=== PATIENT | female | born 1960 | race Caucasian/White ===

== ENCOUNTER 2016-12-27 19:22 | Emergency (ER) | payer BC ==
[2016-12-27] MEDS ORDERED: Aspirin Low Dose CHEW TAB* 81 MG PO ONE (23:27)
[2016-12-27] MEDS ORDERED: NS 0.9% 1000 ML* 1,000 ML IV ONE (23:27)
[2016-12-28 00:29] LABS: Albumin 4.2 g/dL (3.2-5.2); Calcium 9.6 mg/dL (8.6-10.3); EGFR African American 87.5 (>60); Globulin 2.6 g/dL (2-4); Magnesium 2.3 mg/dL (1.9-2.7); Potassium 3.5 mmol/L (3.5-5.0); Total Bilirubin 0.3 mg/dL (0.2-1.0); Total Protein 6.8 g/dL (6.4-8.9)
[2016-12-28 00:41] LABS: Hematocrit 39 % (35-47); Hemoglobin 12.8 g/dl (12.0-16.0); Mean Corpuscular HGB Conc 33 g/dl (31-36); Mean Corpuscular Hemoglobin 30 pg (27-31); Mean Corpuscular Volume 91 fL (80-97); Mean Platelet Volume 9 um3 (7.4-10.4); Red Blood Count 4.29 10^6/ul (4.0-5.4); Red Cell Distribution Width 13 % (10.5-15); White Blood Count 6.5 10^3/ul (3.5-10.8)
[2016-12-28 00:42] LABS: Troponin I 0.01 ng/mL (<0.04)
[2016-12-28 00:43] LABS: TSH (Thyroid Stimulating Horm) 4.26 mcIU/mL (0.34-5.60)
[2016-12-28 00:45] LABS: Urine Bacteria Absent (Absent); Urine Bilirubin Negative (Negative); Urine Glucose Negative (Negative); Urine Nitrite Negative (Negative)
--- NOTE | 2016-12-28 00:53 | ED ---
Boy Cruz Benjamin, scribed for Cinda Hills MD on 12/27/16 at 2345 . Palpitations / Dysrhythmia - HPI Summary HPI Summary: 56yo female reports brief episode of palpitation and fatigue upon exertion on and states not feeling right since 12/22/16. Pt had an episode of pounding palpitations, a"little twinge in mid sternal chest, and mildly out of breath on 12/22/16 shortly after walking the [place]. Pt is asymptomatic now but states "not feeling right" and came for evaluation. Pt reports taking adrenalenum homeopathic allergy meds last week and that it mad her feel like she feels after taking sudafed, and wonders if it stressed her heart. Denies CP. Pt has hx of palpitations, s/p normal stress test 1.5 years ago, has a vendette in [place]. FHx of afib in her father. 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 - History of Current Complaint Chief Complaint: EDDysrhythmPalp Hx Obtained From: Patient Onset/Duration: Sudden Onset, Lasting Days, Still Present Timing: Intermittent Episodes Lasting: Severity Initially: Mild Severity Currently: None Character: Pounding Aggravating: Exertion Alleviating: Nothing Associated Signs & Symptoms: Negative - Allergy/Home Medications Allergies/Adverse Reactions: Allergies Allergy/AdvReac Type Severity Reaction Status Date / Time Sulfa Antibiotics Allergy Rash Verified 12/27/16 19:31 PMH/Surg Hx/FS Hx/Imm Hx Previously Healthy: No - palpitations Cardiovascular History: Reports: Other Cardiovascular Problems/Disorders - palpitations Infectious Disease History: No Infectious Disease History: Denies: Traveled Outside the [place] in Last 30 Days - Family History Known Family History: Positive: Cardiac Disease - afib - Social History Occupation: Employed Full-time Lives: With Family Alcohol Use: Occasionally Substance Use Type: Reports: None Smoking Status (MU): Never Smoked Tobacco Review of Systems Positive: Fatigue Eyes: Negative ENT: Negative Positive: Palpitations Respiratory: Other - dyspnea on exertion 5 days ago Gastrointestinal: Negative Genitourinary: Negative Musculoskeletal: Negative Skin: Negative Neurological: Negative Psychological: Normal All Other Systems Reviewed And Are Negative: Yes Physical Exam Triage Information Reviewed: Yes Vital Signs On Initial Exam: Initial Vitals Temp Pulse Resp BP Pulse Ox 97.4 F 65 18 128/85 100 12/27/16 19:25 12/27/16 19:25 12/27/16 19:25 12/27/16 19:25 12/27/16 19:25 Vital Signs Reviewed: Yes Appearance: Positive: Well-Appearing, No Pain Distress, Well-Nourished Skin: Positive: Warm, Skin Color Reflects Adequate Perfusion Head/Face: Positive: Normal Head/Face Inspection Eyes: Positive: Conjunctiva Clear ENT: Positive: Hearing grossly normal. Negative: Muffled/hoarse voice Neck: Positive: Supple, Nontender Respiratory/Lung Sounds: Positive: Clear to Auscultation, Breath Sounds Present Cardiovascular: Positive: RRR, Pulses are Symmetrical in both Upper and Lower Extremities Musculoskeletal: Positive: Strength/ROM Intact Neurological: Positive: Sensory/Motor Intact, Alert, Oriented to Person Place, Time. Negative: Facial Droop, Focal Deficit @, Slurred Speech Psychiatric: Positive: Normal - [place] Coma Scale Coma Scale Total: 15 Diagnostics - Vital Signs Vital Signs Temp Pulse Resp BP Pulse Ox 12/27/16 23:00 60 14 128/82 98 12/27/16 22:30 57 13 129/75 99 12/27/16 22:00 64 11 127/79 98 12/27/16 21:59 64 11 98 12/27/16 21:57 98.8 F 64 12 123/81 98 12/27/16 19:25 97.4 F 65 18 128/85 100 - Laboratory Lab Results: Lab Results 12/28/16 12/28/16 Range/Units 00:01 00:01 Sodium 140 (133-145) mmol/L Potassium 3.5 (3.5-5.0) mmol/L Chloride 107 (101-111) mmol/L Carbon Dioxide 27 (22-32) mmol/L Anion Gap 6 (2-11) mmol/L BUN 12 (6-24) mg/dL Creatinine 0.86 (0.51-0.95) mg/dL Est GFR ( Amer) 87.5 (>60) Est GFR (Non-Af Amer) 68.0 (>60) BUN/Creatinine Ratio 14.0 (8-20) Glucose 88 (70-100) mg/dL Lactic Acid 0.9 (0.5-2.0) mmol/L Calcium 9.6 (8.6-10.3) mg/dL Magnesium 2.3 (1.9-2.7) mg/dL Total Bilirubin 0.30 (0.2-1.0) mg/dL AST 19 (13-39) U/L ALT 7 (7-52) U/L Alkaline Phosphatase 76 (34-104) U/L Total Creatine Kinase 112 (10-223) U/L CK-MB (CK-2) Pending Troponin I Pending Total Protein 6.8 (6.4-8.9) g/dL Albumin 4.2 (3.2-5.2) g/dL Globulin 2.6 (2-4) g/dL Albumin/Globulin Ratio 1.6 (1-3) TSH Pending Thyroxine (T4) Pending Result Diagrams: 12/28/16 00:01 Lab Statement: Any lab studies that have been ordered have been reviewed, and results considered in the medical decision making process. - EKG 2331. Cardiac Rate: NL - 64bpm EKG Rhythm: Sinus Rhythm ST Segment: Normal Ectopy: None Course/Dx - Course Course Of Treatment: Reviewed medication lists and known allergies. Care to Dr. Roblero at change of shift with labs, xray pending. EKG: SR [address], normal axis, no acute changes, no prior to compare. Pt suggests that Dr. Tish Rousseau is on the board for [employer], and might consider consulting for pt if needed. - Diagnoses Differential Diagnosis/HQI/PQRI: Positive: Coronary Artery Disease, Mitral Valve Prolapse, Paroxymal SVT Provider Diagnoses: Palpitations - Physician Notifications Discussed Care Of Patient With: Gregory Roblero - signout Time Discussed With Above Provider: 23:30 Discharge - Discharge Plan Condition: Stable Disposition: OTHER Discharge Disposition Comment: care to Dr. Roblero at change of shift midnight. Referrals: Non Staff,Doctor [Primary Care Provider] - The documentation as recorded by the Boy montano Benjamin accurately reflects the service I personally performed and the decisions made by me, Cinda Hills MD.
[2016-12-28 02:39] LABS: T4 7.86 mcg/mL (6.09-12.23)
[2016-12-28 05:38] VITALS: BP 116/74
--- NOTE | 2016-12-28 07:22 | RAD ---
INDICATION: Palpitations. COMPARISON: There are no prior studies available for comparison. TECHNIQUE: A portable view of the chest was obtained. FINDINGS: Cardiac and mediastinal contours appear to be within normal limits. The lungs are clear. No pleural effusion is seen. IMPRESSION: NO EVIDENCE FOR ACUTE DISEASE.
== END 2016-12-28 05:39 ==
LOC: ED 19:22
DX: R00.2 Palpitations (principal); R53.83 Other fatigue
CPT/HCPCS: 36415; 71010; 80053; 81003; 81015; 82550; 82553; 83605; 83735; 84436; 84443; 84484; 85025; 85610; 85730; 87086; 93005; 99284; A9270-GY